=== PATIENT | female | born 1995 | race Caucasian/White ===

== ENCOUNTER 2018-11-30 19:53 | Observation (INO) ==
[2018-11-30 20:16] LABS: URINE SOURCE CLEAN CATCH
[2018-11-30 20:20] LABS: BASO# 0.03 X1000 (0.0-0.2); BASO% 0.2 % (0.0-0.8); EOS# 0.04 X1000 (0.0-0.7); EOS% 0.2 % (0.0-10.0); HEMATOCRIT 45.5 % (37.0-47.0); HEMOGLOBIN 15.1 g/dL (12.0-16.0); IMM GRAN# 0.05 X1000 (0.0-0.04); IMM GRAN% 0.3 % (0.0-0.5); LYMPH# 2.53 X1000 (1.2-3.4); LYMPH% 13.4 % (20.5-51.1); MCH 28.9 PG (27-31); MCHC 33.2 g/dL (33-37); MONO# 0.77 X1000 (0.11-0.59); MONO% 4.1 % (1.7-9.3); MPV 9.6 FL (7.4-10.4); NEUT# 15.52 X1000 (1.4-6.5); NEUT% 81.8 % (42.2-75.2); PLT 333 X1000 (130-400); RBC 5.23 XMIL (4.2-5.4); RDW 13.2 % (11.5-14.5); WBC 18.94 X1000 (4.8-10.8)
[2018-11-30 20:22] LABS: BILIRUBIN URINE NEGATIVE (NEGATIVE); BLOOD URINE NEGATIVE (NEGATIVE); COLOR YELLOW; GLUCOSE URINE NEGATIVE (NEGATIVE); KETONE URINE NEGATIVE (NEGATIVE); LEUKOCYTES URINE NEGATIVE (NEGATIVE); NITRITE URINE NEGATIVE (NEGATIVE); PROTEIN URINE TRACE mg/dL (NEGATIVE); SP GRAVITY URINE 1.023; TURBIDITY URINE CLEAR (CLEAR); UR EPITHELIAL CELLS <10 /HPF (<10); URINE BACTERIA 1+ /HPF; URINE RBC <10 /HPF (<10); URINE WBC <10 /HPF (<10); UROBILINOGEN URINE NORMAL (NORMAL)
[2018-11-30 20:39] LABS: AGAP 11; ALB/GLOB RATIO 1.3; ALBUMIN 4.4 g/dL (3.5-5.0); ALKALINE PHOSPHATASE 70 U/L (32-104); BUN 11 mg/dL (8-22); CALCIUM 9.3 mg/dL (8.8-10.2); CHLORIDE 101 mmol/L (98-107); COSMO 272; CREATININE 0.8 mg/dL (0.5-0.9); ESTIMATED GFR > 60; GLUCOSE 141 mg/dL (70-104); GOT 9 U/L (10-30); GPT 14 U/L (10-36); LIPASE 42 U/L (13-60); POTASSIUM 3.7 mmol/L (3.5-5.1); SODIUM 135 mmol/L (136-145); TCO2 23 mmol/L (25-35); TOTAL BILIRUBIN 0.33 mg/dL (0.20-1.00); TOTAL PROTEIN 7.9 g/dL (6.3-8.3)
[2018-11-30 20:53] LABS: INR 0.94; PROTIME 12.7 Seconds (11.0-16.0); PTT 27.6 Seconds (22.3-41.8)
[2018-11-30] MEDS ORDERED: NS 1,000 ML IV ONE ×2 (20:57→22:16)
[2018-11-30] MEDS ORDERED: TORADOL IV ONE (20:57)
[2018-11-30] MEDS ORDERED: ZOFRAN IV ONE (20:57)
--- NOTE | 2018-11-30 21:32 | PROVIDER DOCUMENTATION ---
This chart was entered by Shekhar De Jesus Scribe, acting as scribe for Luna Fletcher MD. HPI-Abdominal Pain/GI Problem - General Chief Complaint: SEPSIS ALERT - D Stated Complaint: AF REFERRED--APPENDICITIS? Time Seen by Provider: 11/30/18 20:26 Source: patient Allergies/Adverse Reactions: Patient Allergies Allergy/AdvReac Type Severity Reaction Status Date / Time No Known Allergies Allergy Verified 11/30/18 20:04 Home Medications: Home Medication List Medication Instructions Recorded Confirmed Last Taken Type Norgestimate/Ethinyl Estradiol 1 tab PO DAILY 11/30/18 11/30/18 11/29/18 History [Sprintec 28's] Sertraline HCl 1 tab PO DAILY 11/30/18 11/30/18 11/29/18 History Dicyclomine [Bentyl] 10 mg PO Q6H PRN PRN #30 cap 12/01/18 Unknown Rx Ondansetron HCl [Zofran] 4 mg PO Q4H PRN PRN #30 tab 12/01/18 Unknown Rx - History of Present Illness-ABD Nature of Presenting Problems: Pt is a 23 yof who presents to the ED with a CC of abdominal pain. Pt reports pain to the RLQ of her abdomen. Pt reports she began having abdominal pain today at approximately 1630 and states she went to [facility] to be treated. Pt reports she had an elevated white count at [facility] and states she was referred to come to the ED. Pt also complains of nausea without vomiting and a cough. Pt states she had a sinus infection last week. Abdominal Pain Onset Location: reports: RLQ Pain Radiation: reports: no radiation Quality of Pain: reports: aching Severity in ED: reports: mild Onset/Duration: reports: 4-6 hours ago Timing: reports: still present Exposure to sick contacts?: No Modifying Factors: worse with: lying down Associated Symptoms: reports: nausea Bruising or Bleeding Gums?: No Similar Symptoms Previously?: Yes Recently seen or treated by another doctor?: Yes Review of Systems - Adult - REVIEW OF SYSTEMS - ADULT Constitutional: reports: see HPI Eyes: reports: no symptoms reported Ears, Nose, Mouth & Throat: reports: no symptoms reported Cardiovascular: reports: no symptoms reported Respiratory: reports: no symptoms reported Gastrointestinal: reports: see HPI, abdominal pain, nausea Genitourinary: reports: no symptoms reported Musculoskeletal: reports: no symptoms reported Integumentary: reports: no symptoms reported Neurological: reports: no symptoms reported Psychiatric: reports: no symptoms reported Endocrine: reports: no symptoms reported Hematologic/Lymphatic: reports: no symptoms reported Allergic/Immunologic: reports: no symptoms reported All Other Systems: Reviewed and Negative Past History - Adult - PAST MEDICAL HISTORY-ADULT Review of Records: reports: Old Records Reviewed, Nursing Assessment Review, Medications Reviewed, Social history reviewed & non-contributory. Major Childhood Illnesses: reports: denies history Cardiovascular: reports: denies history Respiratory: reports: denies history Gastrointestinal: reports: denies history Obstetrical/Gynecological: reports: denies history Genitourinary: reports: denies history Musculoskeletal: reports: denies history Neurological: reports: denies history Endocrine/Immune: reports: denies history Other Conditions: reports: denies history - IMMUNIZATION STATUS Childhood Immunizations: See Nurse Assessment Flu Vaccine: See Nurse Assessment - FAMILY HISTORY Family History: reviewed, not pertinent - SOCIAL HISTORY Smoking: denies, non-smoker Substance Use: none/never, denies Alcohol Use Frequency: never Physical Exam-General - PHYSICAL EXAM-ADULT Initial Vital Signs Reviewed: Yes - CONSTITUTIONAL General Appearance: alert, mild distress - EYES Eyes: PERRL/EOMI - HEAD, EARS, NOSE, MOUTH & THROAT HENMT: normocephalic/atraumatic, moist mucous membranes - NECK Neck: non-tender, full range of motion - RESPIRATORY Respiratory: chest non-tender, lungs clear, normal breath sounds, no pleuratic chest pain, no respiratory distress, no accessory muscle use - CARDIOVASCULAR Cardiovascular: normal peripheral pulses, no edema, no murmur, tachycardia - GASTROINTESTINAL (ABDOMEN) Abdominal Exam: normal bowel sounds, soft, tenderness - MUSCULOSKELETAL Back Exam: normal inspection, no CVA tenderness, no vertebral tenderness Extremity: normal range of motion, non-tender - SKIN Integumentary: normal color, warm/dry - NEUROLOGIC Neurologic: grossly normal, no motor/sensory deficits - PSYCHIATRIC Psych/Mental Status: normal mood/affect, normal thought content, normal thought process, oriented x 3 Progress - PLAN OF CARE/RESULTS Progress/Plan/Lab Results: Vital Signs - 8 hr 11/30/18 19:55 Temperature 98.1 F Pulse Rate 115 H Respiratory Rate 18 Blood Pressure 153/106 O2 Sat by Pulse Oximetry 100 Bedside Urine ED: Urine Bedside Start: 11/30/18 20:04 Freq: ORDERED Status: Active Protocol: Activity Type Activity Date Activity User E-Sign Co-Sign Detail Recorded Client Recorded Date Recorded By Document 11/30/18 20:05 [id number] 11/30/18 20:06 [id number] 11/30/18 20:05 Point of Care [Bedside Point of Care] -Lot # [id number] - Results Negative -Control Line Visible? Yes -Additional Comment exp 2019-12-20 Laboratory Results - last 24 hr 11/30/18 11/30/18 11/30/18 20:02 20:07 20:07 WBC 18.94 H RBC 5.23 Hgb 15.1 Hct 45.5 MCV 87.0 MCH 28.9 MCHC 33.2 RDW Std Deviation 13.2 Plt Count 333 MPV 9.6 Immature Gran % (Auto) 0.3 Neut % (Auto) 81.8 H Lymph % (Auto) 13.4 L [place] % (Auto) 4.1 Eos % (Auto) 0.2 Baso % (Auto) 0.2 Immature Gran # (Auto) 0.05 H Neut # (Auto) 15.52 H Lymph # (Auto) 2.53 [place] # (Auto) 0.77 H Eos # (Auto) 0.04 Baso # (Auto) 0.03 Sodium 135 L Potassium 3.7 Chloride 101 Carbon Dioxide 23 L Anion Gap 11 BUN 11 Creatinine 0.8 Estimated GFR/1.73 m2 > 60 BUN/Creatinine Ratio 14 Glucose 141 H Calculated Osmolality 272 Calcium 9.3 Total Bilirubin 0.33 AST 9 L ALT 14 Alkaline Phosphatase 70 Total Protein 7.9 Albumin 4.4 Globulin 3.5 Albumin/Globulin Ratio 1.3 Lipase 42 Urine Source CLEAN CATCH Urine Color YELLOW Urine Turbidity CLEAR Urine pH 7.0 Ur Specific [place] 1.023 Urine Protein TRACE A Ur Glucose (Stick) NEGATIVE Ur Ketones (Stick) NEGATIVE Urine Blood NEGATIVE Urine Nitrite NEGATIVE Urine Bilirubin NEGATIVE Urobilinogen Dipstick NORMAL Urine Leukocytes NEGATIVE Urine WBC (Auto) <10 Urine RBC (Auto) <10 U Epithel Cells (Auto) <10 Urine Bacteria (Auto) 1+ Orders Category Date Time Status Cardiac Monitoring DIRECTED Care 11/30/18 20:26 Active ED: Urine Bedside ORDERED Care 11/30/18 20:04 Active IV Insertion ORDERED Care 11/30/18 20:26 Active Notify MD of + Sepsis Screen NOW Care 11/30/18 20:26 Active Notify Physician As Ordered Care 11/30/18 20:26 Active NPO Diet 11/30/18 20:04 Active CHEST-1 VIEW [RAD] Stat Exams 11/30/18 20:26 Taken BLOOD CULTURE [BLDCUL] Stat Lab 11/30/18 20:26 Uncollected CBC WITH DIFF [HEME] Stat Lab 11/30/18 20:07 Completed CK PROFILE [SP CHEM] Stat Lab 11/30/18 20:07 Ordered COMPREHENSIVE METABOLIC PANEL [CHEM] Stat Lab 11/30/18 20:07 Completed LACTATE, PLASMA [CHEM] Lab 11/30/18 20:30 Uncollected LACTATE, PLASMA [CHEM] Lab 11/30/18 23:30 Uncollected LACTATE, PLASMA [CHEM] Lab 12/01/18 02:30 Uncollected LIPASE [CHEM] Stat Lab 11/30/18 20:07 Completed PROTIME WITH INR [COAG] Stat Lab 11/30/18 20:07 Ordered PTT [COAG] Stat Lab 11/30/18 20:07 Ordered TROPONIN T Stat Lab 11/30/18 20:07 Ordered URINALYSIS [URINALYSIS] Stat Lab 11/30/18 20:02 Completed Abd Pain/OB <20 weeks Stat Oth 11/30/18 20:04 Ordered Oxygen Device Stat Oth 11/30/18 20:26 Active Patient with WBC to 19, LA to 3.0 and initial HR to the 140s. Initial CT read was normal showing nothing acute. Given her symptoms we asked a 2nd radiologist to review the CT. The 2nd read came back as appendix in the upper limits of normal but no inflammatory changes surrounding. Her pain has resolved so there is likely low suspicion for appendicitis. She states she took two days of a steroid earlier this week for URI and this could be the cause of her WBC however due to tachycardia, leukoysotis, LA and CT read will admit for OBS for abd exams. Spoke to Dr Cedeno who will see patient in consult. Spoke to Dr Sampson slot operations director for hospitalist who accepted patient for admission. Further orders to be placed per their team. Result Diagrams: 11/30/18 20:07 11/30/18 20:07 - XRAY 1 XRAY: Bilateral XRAY Study: Chest Impression: See EMR Report (EXAM: CHEST-1 VIEW INDICATION: sepsis protocol TECHNIQUE: One view COMPARISON: None. FINDINGS: The lungs are grossly clear. There is no discrete pleural fluid collection or pneumothorax. The cardiomediastinal silhouette and central vasculature are grossly unremarkable. IMPRESSION: No evidence of acute pathology by plain radiograph. Electronically signed by Slava Lincoln 11/30/2018 9:27 PM 11/30/182126 Interpreting Physician: Slava Lincoln MD Dictated Date/Time: 11/30/182126 cc: Luna Fletcher MD; None,PCP) - CT/MRI 1 CT Study: Abdomen, Pelvis Impression: See EMR Report (Impression: No significant acute process in the abdomen or pelvis. Hepatic steatosis.) 2 CT Study: Abdomen Impression: See EMR Report (Appendix is in the upper limit of normal at 6-7mm. No inflammatory changes surrounding. If clinical suspicion consider repeat exam.) - CONSULTS/PCP/HOSPITALIST Notification #1 *Consult/PCP/Hospitalist*: Dr Cedeno Time Discussed: 00:20 Consult Disposition: other (Ok to obs to hospitalist. will see patient in consult. Ok to continue zosyn overnight.) #2 Consult: Dr Sampson Time Discussed: 00:30 Consult Disposition: Admit Departure - Departure Date of Disposition Decision: 11/30/18 Time of Disposition Decision: 00:13 DIAGNOSIS: Abdominal pain Qualifiers: Abdominal location: right lower quadrant Qualified Code(s): R10.31 - Right lower quadrant pain Leukocytosis Qualifiers: Leukocytosis type: unspecified Qualified Code(s): D72.829 - Elevated white blood cell count, unspecified Disposition: ADMITTED INPATIENT 09 Certified Medical Emergency: Emergent Condition: Stable Additional Instructions: ED Follow Up Instructions: You have been treated by a care provider in the Emergency Department. These inst ructions are being provided to you so you can have an understanding of how to care for yourself upon discharge. Upon discharge from the Emergency Department, you are responsible for making arrangements for follow-up care by a physician of your choice. Take all prescribed medications as directed. Return to the Emergency Department immediately for any new or worsening symptoms. You may call the Physician Referral phone number at [phone] to obtain a list of Physicians who are taking new patients. Prescriptions: Dicyclomine [Bentyl] 10 mg PO Q6H PRN PRN #30 cap PRN Reason: Abdominal cramping Ondansetron HCl [Zofran] 4 mg PO Q4H PRN PRN #30 tab PRN Reason: Nausea Referrals and Follow-Ups: None,PCP [Primary Care Provider] - Discharge Education: Leukocytosis, Abdominal Pain, Adult, [id number] - Critical Care Note This patient required my direct & personal management of CC.: No Attestation - Physician/ ARIELLE Attestation Patient care was provided by Advanced Practice Provider:: No The physician spent face to face time with patient:: Yes Advanced Practice Provider documentation review:: Supervising physician onsite and consulted in the evaluation and care of this patient. The physician did have a face to face encounter with the patient. This chart was documented by the indicated scribe, (Shekhar De Jesus, Ingrisibe) and accurately reflects the services I performed and decisions made by me, Luna Fletcher MD, as attested by the provider's signature.
[2018-11-30] MEDS ORDERED: ZOSYN 4.5 GM in NS 100 ML IV ONE (22:15)
[2018-12-01] MEDS ORDERED: NS 1,000 ML IV SCH (01:15)
[2018-12-01] MEDS ORDERED: MORPHINE IV PRN (01:15)
[2018-12-01] MEDS ORDERED: ZOFRAN IV PRN (01:15)
[2018-12-01 01:42] LABS: HEMOGLOBIN A1C 4.8 % (4.8-6.0)
[2018-12-01] MEDS: ZOSYN 3.375 GM in NS 50 ML IV SCH ×3 (05:16→17:58)
[2018-12-01] MEDS ORDERED: ZOSYN 3.375 GM in NS 50 ML IV SCH (06:00)
[2018-12-01 06:01] LABS: BASO# 0.03 X1000 (0.0-0.2); BASO% 0.3 % (0.0-0.8); EOS# 0.03 X1000 (0.0-0.7); EOS% 0.3 % (0.0-10.0); HEMATOCRIT 40.7 % (37.0-47.0); HEMOGLOBIN 13.3 g/dL (12.0-16.0); IMM GRAN# 0.02 X1000 (0.0-0.04); IMM GRAN% 0.2 % (0.0-0.5); LYMPH# 2.66 X1000 (1.2-3.4); LYMPH% 29.2 % (20.5-51.1); MCHC 32.7 g/dL (33-37); MCV 88.7 FL (81-99); MONO# 0.48 X1000 (0.11-0.59); MONO% 5.3 % (1.7-9.3); MPV 9.8 FL (7.4-10.4); NEUT% 64.7 % (42.2-75.2); PLT 276 X1000 (130-400); RBC 4.59 XMIL (4.2-5.4); RDW 13.1 % (11.5-14.5); WBC 9.12 X1000 (4.8-10.8)
[2018-12-01 06:43] LABS: AGAP 11; BUN 7 mg/dL (8-22); CALCIUM 7.8 mg/dL (8.8-10.2); CHLORIDE 110 mmol/L (98-107); COSMO 279; CREATININE 0.6 mg/dL (0.5-0.9); ESTIMATED GFR > 60; GLUCOSE 89 mg/dL (70-104); POTASSIUM 4.1 mmol/L (3.5-5.1); SODIUM 141 mmol/L (136-145); TCO2 20 mmol/L (25-35)
[2018-12-01] MEDS ORDERED: NORCO-7.5 PO PRN (07:39)
--- NOTE | 2018-12-01 07:50 | HISTORY AND PHYSICAL ---
CHIEF COMPLAINT: Abdominal pain. HISTORY OF PRESENT ILLNESS: This is a 23-year-old female who comes in to the emergency room after being referred from [facility] with right lower quadrant abdominal pain. She stated that it started roughly 4 to 6 hours prior to her arrival. It did not radiate. It was an aching. It was worse when she lied down. She had some nausea but no vomiting. No diarrhea associated with it. She did have an elevated white count; however, apparently she took a couple of days of steroids last week for an upper respiratory infection. A CT scan originally showed nothing acute. The ER had it overread on second read that showed that the appendix was at the upper limits for size, but there was no inflammation surrounding. It does not appear to be appendicitis; however, the patient will be watched for observation, as she continues to be tachycardic in the emergency room with leukocytosis. PAST MEDICAL HISTORY: Recent upper respiratory infection, otherwise denies. PAST SURGICAL HISTORY: Denies. SOCIAL HISTORY: No tobacco, alcohol or illicit drugs. FAMILY HISTORY: This was reviewed and not pertinent. She denied any early cardiac in her family. ALLERGIES: No known drug allergies. HOME MEDICATIONS: Sprintec 28 one p.o. daily and sertraline 50 mg p.o. daily. REVIEW OF SYSTEMS: A 14-point review of systems was conducted with the patient and pertinent positives listed above in the HPI. All other systems reviewed and found to be negative. PHYSICAL EXAMINATION: VITAL SIGNS: Temperature 98.4, pulse 95, respirations 21, blood pressure 139/85, oxygen saturation 98% on room air. GENERAL: A pleasant 23-year-old female lying on the ER stretcher. She answered all questions appropriately. She is alert and oriented x3. She is in no acute distress. HEENT: Head is atraumatic and normocephalic. Pupils are equal, round and reactive to light. Extraocular eye movements intact. Sclerae anicteric. Conjunctivae are pink. Oral mucosa is moist. NECK: Supple. No JVD. No thyromegaly. Trachea is midline. No cervical lymphadenopathy. CARDIAC: S1 and S2 appreciated. No murmurs, gallops or rubs. The patient is tachycardic. ABDOMEN: Soft, nondistended. Tender in bilateral lower quadrants. No rebound tenderness. No guarding. No pulsatile mass. No organomegaly. EXTREMITIES: No cyanosis, clubbing or edema. There are 2+ pedal pulses bilaterally. GENITOURINARY: No bladder distention. The patient voids. Otherwise deferred. NEUROLOGICAL: Alert and oriented x3. No focal motor deficits. Otherwise nonfocal examination. DIAGNOSTIC DATA: Chest x-ray with no acute process. CT was originally read as no significant acute process in the abdomen or pelvis; however, it was overread as the appendix being 6 to 7 mm. No inflammatory changes. Laboratory data showed WBC of 18.94, hemoglobin 15.1, hematocrit 45.5, platelet count 333. Sodium is 135, potassium 3.7, chloride 101, carbon dioxide 23, BUN is 11, creatinine 0.8, glucose 141. Urine unremarkable. ASSESSMENT AND PLAN: 1. Abdominal pain with leukocytosis. We will give Zosyn overnight. Dr. Cedeno has been consulted. The patient will be placed in observation status. Morphine as needed for pain. Zofran as needed for nausea. It is likely not appendicitis; however, Dr. Cedeno will be consulted to see the patient. 2. Leukocytosis secondary to number 1. It is likely reactive. Also, the patient took steroids last week for upper respiratory infection. We will recheck laboratory data. 3. Hyperglycemia. Check hemoglobin A1c. 4. Fluid volume depletion. The patient's lactate was mildly elevated. She does show signs of clinical dehydration. We will give treatment with crystalloids overnight. Further recommendations based on the patient's clinical course. Dictated by ANNAMARIA Ladd for Jay Jay Sampson MD I have performed a face to face diagnostic evaluation. Labs/ Xrays- reviewed. Exam- Chest- clear, CV- regular, Abd- diffuse tenderness. A/P- Abdominal pain- Admit,NPO, supportive care, surgery consult. Dr. Sampson. cc: ANNAMARIA Ladd MD [facility]
--- NOTE | 2018-12-01 08:05 | CONSULTATION ---
DATE OF CONSULTATION: 12/01/2018 REASON FOR CONSULTATION/REQUESTING PHYSICIAN: I was asked to see Ms. Mayra Mendoza by our emergency department and hospitalist because of right lower quadrant pain. HISTORY OF PRESENT ILLNESS: Mayra Mendoza is a 23-year-old white female who presented to our emergency department yesterday evening with a several-hour history of right lower quadrant pain, which was severe. She was evaluated by emergency department physician, which included a CT scan of her abdomen and pelvis, which was essentially normal. Her white blood cell count was elevated, as was her plasma lactate, and her heart rate was elevated, so she was admitted for observation. This morning, she says she is a little sore in her right lower quadrant, but the pain that brought her to the emergency department has resolved. She has had regular bowel movements, normal menses, no nausea and vomiting. She has had a child. MEDICATIONS: control, sertraline, Bentyl, and Zofran. ALLERGIES: No known drug allergies. SOCIAL HISTORY: Her is at the bedside. She does not smoke or drink alcohol. She has had a section. FAMILY HISTORY: Family history was reviewed and was essentially negative. REVIEW OF SYSTEMS: A 14-point review of systems was performed and was essentially negative, except for the history of present illness. PHYSICAL EXAMINATION: On exam, Ms. Mayra Mendoza is a healthy-appearing, young, 23-year-old, white female. Her heart rate is 80, blood pressure 124/80, O2 saturation 100%. She has no work of breathing. She is afebrile. She weighs 153 pounds. She is 5 feet 5 inches. She has no jaundice. No oral lesions. Satisfactory dentition. No cervical or supraclavicular lymphadenopathy. No enlarged thyroid. Heart had a regular rate. Lungs were clear to auscultation and percussion bilaterally. Her abdomen is soft. There was no evidence of hernia. There was no palpable mass. There is no significant tenderness in the right lower quadrant this morning. No costovertebral tenderness. Rectal and vaginal exams were not performed. She does have palpable peripheral pulses. No peripheral edema. Neurologically, she is alert and oriented x3 and appropriate. IMAGING AND LABORATORY DATA: This morning, her white blood cell count has gone from 18 to 9. Her hematocrit is stable at 40%. Electrolytes are within normal limits. Her plasma lactate has returned to normal. Her chest x-ray is clear. Urinalysis is clear. CT scan showed no inflammation around the appendix, or any other intra-abdominal pathology. IMPRESSION: Significant right lower quadrant pain with elevated white blood cell count and plasma lactate, which has resolved this morning. She has been receiving intravenous Zosyn and fluids. She states that she is hungry, and will advance her diet, and as long as her symptoms remain resolved, we can look to discharge her. cc: Carolina Cedeno MD
--- NOTE | 2018-12-01 08:23 | Diag Imaging Result Doc PS360 ---
EXAM: CT ABD/PELVIS W/IV CONT ONLY INDICATION: RLQ abd pain, 19k WBC TECHNIQUE: This exam was performed using automated exposure control, adjustment of mA or kV according to patient size, and/or use of iterative reconstruction technique. COMPARISON: None. FINDINGS: There is questionable very minimal hepatic steatosis. The liver is unremarkable, otherwise. The gallbladder, spleen, pancreas, adrenal glands, kidneys, and urinary bladder are unremarkable. The reproductive tract is grossly unremarkable as imaged. The diameter of the appendix is near the upper limit of normal measuring between six and 7 mm in diameter. However, there is no periappendiceal inflammatory change to suggest appendicitis. No focal bowel wall thickening or bowel obstruction is identified. There are a few shotty borderline prominent mesenteric lymph nodes near the root of the mesentery that are nonspecific and may not even be pathologic. Mild mesenteric adenitis is a consideration. No significant free fluid, focal inflammatory changes, or free abdominal gas is appreciated. IMPRESSION: 1.Shotty borderline prominent mesenteric lymph nodes near the root of the mesentery that are nonspecific. Mild mesenteric panniculitis is possible. 2.Although the appendix is near the upper limit of normal for diameter, there is no periappendiceal inflammatory change to indicate appendicitis. 3.No other definite acute pathology. Electronically signed by Slava Lincoln 12/01/2018 8:20 AM
--- NOTE | 2018-12-01 13:52 | PROGRESS NOTE ---
DATE: 12/01/2018 INTERVAL HISTORY: Ms. Mendoza was admitted for right lower quadrant abdominal pain, lactic acidosis, tachycardia, leukocytosis. In the morning time, she is feeling better. SUBJECTIVE: She is resting in the bed. She says she is feeling much better today than she did yesterday. She said she had upper respiratory tract infection, sinusitis symptoms about probably 7 days ago, for which she received antibiotics, and she took some steroids for a couple of days. Currently, she is denying any nausea, vomiting. Abdominal pain is better. She is eating okay. Her urine test was negative. OBJECTIVE: Vital Signs: Temperature 98.7 degrees, pulse 74, respiratory rate 14, blood pressure 109/80, she is saturating 100% on room air. General: Not in any acute distress. HEENT: Oral cavity is moist. Mild congestion in the pharynx. Lungs: Air entry bilaterally equal. No wheeze, rhonchi, or crackles. Heart: S1, S2 heard. No murmur, rub, or gallop. Abdomen: Soft. Mild tenderness in the right lower quadrant without guarding or rigidity. Extremities: No lower extremity edema. Neurologic: She is alert and oriented x3. LABORATORY DATA: Suggestive of resolution of leukocytosis. Normal hemoglobin. Normal platelet count. She does have mild hyperchloremia because of intravenous fluid. However, otherwise normal kidney function. Her plasma lactic acidosis has resolved. Urine test is negative. Blood culture is in lab. IMAGING: Abdomen and pelvis CT had shotty borderline prominent mesenteric lymph nodes near the root of the mesentery that are nonspecific. Although the appendix was near the upper limit of normal for diameter, there was no periappendiceal inflammatory change to indicate appendicitis. No other definitive acute pathology. ASSESSMENT AND PLAN: 1. Presumed sepsis of unclear etiology based on tachycardia, leukocytosis, and lactic acidosis on presentation. Currently, she does not show any signs of pneumonia, urine infection, cholecystitis, or appendicitis. However, she did improve with intravenous fluids and intravenous antibiotic. I will monitor her inside the hospital for 24 hours until her blood cultures come back. I will continue her on current diet and intravenous Zosyn. No immediate surgical intervention planned as per Surgery recommendations. Though she had leukocytosis and eosinophil count of 0.2%, it improved rapidly with antibiotics. 2. She did have hyperglycemia, but her hemoglobin A1c is normal. 3. Disposition. I will continue to monitor the patient inside the hospital for 24 hours as I await blood culture results. Plan of care discussed with the patient and her . I addressed all of their concerns. I explained to them about the need for following up with blood cultures. All of their questions have been answered. I will keep the patient on some stool softeners to take care of her constipation. cc: Rk Mcpherson MD
[2018-12-01] MEDS: DULCOLAX PR SCH ×2 (14:12→20:43)
[2018-12-01] MEDS: MIRALAX PO SCH ×2 (14:12→20:42)
[2018-12-01] MEDS ORDERED: ZOLOFT PO SCH (22:30)
[2018-12-02] MEDS: ZOSYN 3.375 GM in NS 50 ML IV SCH ×2 (00:11→06:24)
[2018-12-02 07:09] LABS: BASO# 0.04 X1000 (0.0-0.2); BASO% 0.7 % (0.0-0.8); EOS% 1.8 % (0.0-10.0); HEMATOCRIT 41.7 % (37.0-47.0); HEMOGLOBIN 13.6 g/dL (12.0-16.0); LYMPH# 2.83 X1000 (1.2-3.4); LYMPH% 51.5 % (20.5-51.1); MCH 29.1 PG (27-31); MCHC 32.6 g/dL (33-37); MCV 89.3 FL (81-99); MONO# 0.41 X1000 (0.11-0.59); MONO% 7.5 % (1.7-9.3); NEUT# 2.12 X1000 (1.4-6.5); NEUT% 38.5 % (42.2-75.2); PLT 284 X1000 (130-400); RBC 4.67 XMIL (4.2-5.4); RDW 13.4 % (11.5-14.5)
[2018-12-02 07:25] LABS: AGAP 8; BUN 9 mg/dL (8-22); CALCIUM 8.6 mg/dL (8.8-10.2); CHLORIDE 109 mmol/L (98-107); COSMO 278; CREATININE 0.7 mg/dL (0.5-0.9); ESTIMATED GFR > 60; GLUCOSE 93 mg/dL (70-104); SODIUM 140 mmol/L (136-145); TCO2 23 mmol/L (25-35)
[2018-12-02] MEDS: MIRALAX PO SCH (08:48)
[2018-12-02 11:08] VITALS: BP 133/96
--- NOTE | 2018-12-03 05:02 | DISCHARGE SUMMARY ---
ADMISSION DATE: 11/30/2018 DISCHARGE DATE: 12/02/2018 DISCHARGE DISPOSITION: Home. DISCHARGE CONDITION: Hemodynamically stable. She is able to tolerate diet without any nausea or vomiting. She denies any abdominal pain whatsoever. DISCHARGE INSTRUCTIONS: She was provided detailed discharge instructions with her at bedside about following up with regular physician within 5 days, and discuss about this admission. She was also instructed to come to the emergency room if her symptoms would worsen. She was informed that we could not find any source of infection, and it was really unclear why she had developed abdominal pain. She understood it, and agreed. DISCHARGE DIAGNOSES: 1. Right lower quadrant abdominal pain of unclear etiology. 2. Presumed sepsis on presentation without any identifiable source. 3. History of anxiety and depression. 4. Lactic acidosis 5. Constipation DISCHARGE MEDICATIONS: 1. Sertraline 50 mg daily. 2. Norgestimate Ethinyl Estradiol 1 tablet daily. CONSULTATIONS DURING HOSPITAL ADMISSION: Dr. Cedeno, General Surgery. VITALS: At the time of discharge, temperature 98.1 degrees, pulse 71, respiratory rate 16, blood pressure 130/96, and saturating 100% on room air. PHYSICAL EXAMINATION: At the time of discharge, oral cavity is moist. Lungs: Air entry bilaterally equal. No wheeze, rhonchi, or crackles. Cardiovascular: S1, S2 normal. No murmur, gallop or rub. Abdomen: Soft. No tenderness. Active bowel sounds in all quadrants. Extremity: No lower extremity edema. She was alert and oriented x3. Mood was pleasant. LABORATORY DURING HOSPITAL ADMISSION AND DISCHARGE: [place], [place] [address] with eosinophil count of 0.2. At the time of discharge, her WBC is 5500 with eosinophil count of 1.8. On presentation, her sodium chloride and electrolytes were normal. On discharge, they were normal as well except chloride of 109, BUN of 9, and creatinine of 0.7. Her urinalysis did not have any pyuria though urine did have 1+ bacteria. There were no WBCs. Urine test was negative. On admission, she had lactic acidosis of 3 which at the time of discharge was 1.4. Blood culture did not have growth for 48 hours. IMAGING: On admission, abdomen and pelvis CT had shotty borderline prominent mesenteric lymph nodes near the root of the mesentery that were nonspecific. Mild mesenteric panniculitis was possible although the appendix is near the upper limit of normal for diameter. There was no periappendiceal inflammatory change to indicate appendicitis. No other definite acute pathology. Chest x-ray did not have any evidence of acute pathology. HOSPITAL COURSE SUMMARY: Ms. Mendoza is 23 year old lady who initially presented on 11/30/2018 nighttime with chief complaints of abdominal pain. She had initially gone to [facility] with right lower quadrant abdominal pain which had started 6 hours prior to arrival without any radiation. It was aching, getting worse on lying down associated with nausea without any vomiting or diarrhea. In the emergency room, [place] [address] with 0.2% eosinophil count as well as lactate of 3 so she was started on intravenous fluids, intravenous Zosyn, and hospitalist team was consulted for further management. Noticeably, patient did have upper respiratory tract infection, and had received antibiotics and steroids for a couple of days about 5 days prior to presentation. With intravenous fluids and intravenous antibiotics, she rapidly improved. The next morning, her WBC count was normal. Her lactic acidosis has rapidly resolved, and she was symptom-free. She was still kept under observation for another 24 hours. Apparently, the blood culture returned normal. On CAT scan, she did have constipation so laxatives were given to her after which she had good bowel movement. It was unclear at the time of discharge what could have precipitated her abdominal pain. There was a possibility of mild colitis related to constipation which got better with laxatives. However, she was also on IV antibiotics and IV fluids, which could have helped. The source of infection was unclear so she was instructed about following up with regular physician within 5 days, and immediately come to the emergency room where she would have recurrence of symptoms. TIME SPENT: More than 30 minutes spent discharging the patient. Plan of care was extensively discussed with the patient, and her at bedside. Their questions were satisfactorily answered. cc: MD SANDEEP French
== END 2018-12-02 12:15 | disposition home or self-care (01) ==
LOC: 4N 19:53 → ED 19:53 → SUATTDRO 19:54
PROVIDERS: ATTEND Internal Medicine